=== PATIENT | female | born 1985 | race Caucasian/White ===

== ENCOUNTER 2016-07-19 11:28 | Emergency (ER) | payer BC ==
[~2016-07-19 11:28] MED LIST: ALBUTEROL17 GM INH; BIRTH CONTROL PILLS; FLEXERIL PO; FLEXERIL10 M1 PO; HUMALOG100 U/ML SUBQ; HYCODAN PO; INSULIN PUMP; LANTUS SOLOSTAR3 ML SQ; LANTUS SQ; LEVEMIR SQ; NAPROSYN500 MG PO; NAPROXEN PO; NOVALOG; NOVOLOG100 U/M2 SQ; NOVOLOG100 UNITS/; ROBITUSSIN A-C-S1 ML PO; VITAMIN D; VITAMIN D1000 UNIT PO; VOLTAREN75 MG PO; ZANAFLEX2 M2 PO; ZITHROMAX PO; ZOFRAN PO
[2016-07-19] MEDS ORDERED: ZOLOFT100 MG PO (11:43)
[2016-07-19 12:11] LABS: URINE SOURCE CLEAN CATCH
[2016-07-19 12:13] LABS: URINE APPEARANCE CLEAR; URINE BILIRUBIN NEG (NEG); URINE BLOOD NEG (NEG); URINE COLOR YELLOW; URINE GLUCOSE 100 MG/DL (NORM); URINE LEUKOCYTE ESTERASE NEG (NEG); URINE NITRATE NEG (NEG); URINE PROTEIN NEG (NEG); URINE SPECIFIC GRAVITY 1.025 (1.003-1.035); URINE UROBILINOGEN 0.2 MG/DL (NORM)
[2016-07-19 12:16] LABS: MICRO INDICATED? NO; URINE KETONE 3+ (NEG)
[2016-07-19 12:48] LABS: GLOM FILT RATE Estimated 76.1 mL/min (>60); POTASSIUM 3.8 mmol/L (3.5-5.1)
[2016-07-19 12:51] LABS: ACETONE, SERUM 20 MG/DL (0-0); BETA-HCG SCREEN-PREGNANCY NEG
== END 2016-07-19 15:31 | disposition home or self-care (01) ==
LOC: SED 11:28
PROVIDERS: Emergency Medicine
DX: K29.00 Acute gastritis without bleeding (principal); E13.10 Other specified diabetes mellitus with ketoacidosis without coma; B34.9 Viral infection, unspecified; F32.9 Major depressive disorder, single episode, unspecified; Z79.4 Long term (current) use of insulin; Z88.0 Allergy status to penicillin
CPT/HCPCS: 36415; 80048; 81003; 82010; 82947; 84703; 96361; 96374; 96375; 99284; J2405

== ENCOUNTER 2016-12-08 14:04 | Emergency (ER) | payer BC ==
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
[~2016-12-08 14:04] MED LIST changes: +ZOLOFT100 MG PO
[2016-12-08 15:28] LABS: BASOPHIL# 0.1 X10e3 (0-0.3); BASOPHIL% 0.7 % (0-2.5); EOSINOPHIL% 0.2 % (0.0-7.0); HEMATOCRIT 37.7 % (35.0-45.0); HEMOGLOBIN 12.5 gm/dL (12.0-16.0); MEAN CELL VOLUME 82.1 FL (83-96); MEAN CORPUSCULAR HEMOGLOBIN 27.2 PG (28-34); MEAN CORPUSCULAR HGB CONC 33.1 g/dL (30-36); MEAN PLATELET VOLUME 7.9 FL (6.5-11.5); MONOCYTE% 8.2 % (3.0-12.0); NEUTROPHIL# 8.4 X10e3 (1.5-7.1); NEUTROPHIL% 66.9 % (40-75); PLATELET COUNT 425 X10e3 (140-420); RED BLOOD COUNT 4.59 X10e (3.90-5.30); WHITE BLOOD COUNT 12.6 X10e3 (4.0-10.5)
[2016-12-08 15:30] LABS: DIFF IND NO
[2016-12-08 15:47] LABS: URINE SOURCE CLEAN CATCH
[2016-12-08 15:49] LABS: ALBUMIN SERUM 4.3 g/dL (3.5-5.0); ALKALINE PHOSPHATASE 136 U/L (32-92); ALT (SGPT) 23 U/L (10-40); AST (SGOT) 26 U/L (10-42); BILIRUBIN, DIRECT 0.1 mg/dL (0.0-0.2); BILIRUBIN,INDIRECT 0.8 mg/dL (0.0-0.9); BILIRUBIN,TOTAL 0.9 mg/dL (0.2-2.0); BLOOD UREA NITROGEN 14 mg/dL (9-23); BUN/CREATININE RATIO 15.55; CALCIUM SERUM 9.1 mg/dL (8.4-10.2); CARBON DIOXIDE 24 mmol/L (22-31); CHLORIDE 100 mmol/L (100-111); CREATININE SERUM 0.9 mg/dL (0.6-1.4); GLOM FILT RATE Estimated 85.9 mL/min (>60); GLUCOSE FASTING 341 mg/dL (70-110); POTASSIUM 4.1 mmol/L (3.5-5.1); PROTEIN TOTAL SERUM 7.9 g/dL (6.0-8.3); SODIUM 134 mmol/L (135-145)
[2016-12-08 15:50] LABS: URINE APPEARANCE CLEAR; URINE BILIRUBIN NEG (NEG); URINE BLOOD 3+ (NEG); URINE COLOR YELLOW; URINE GLUCOSE 100 MG/DL (NORM); URINE LEUKOCYTE ESTERASE NEG (NEG); URINE NITRATE NEG (NEG); URINE PH 5.5 (5-8); URINE PROTEIN NEG (NEG); URINE SPECIFIC GRAVITY 1.025 (1.003-1.035); URINE UROBILINOGEN 0.2 MG/DL (NORM)
[2016-12-08 15:51] LABS: MICRO INDICATED? YES; URINE KETONE 2+ (NEG)
[2016-12-08 15:54] LABS: ALCOHOL BLOOD <5 mg/dL ([, 0])
[2016-12-08 15:56] LABS: CULTURE INDICATED? YES; URINE BACTERIA 1+ (NEG); URINE RBC 25-50 /[HPF] (0-2)
[2016-12-08 15:57] LABS: URINE SQUAMOUS EPITHELIAL CELL FEW /[HPF]
[2016-12-08 16:06] LABS: AMPHETAMINE NEG (NEG); BARBITURATES NEG (NEG); BENZODIAZEPINES NEG (NEG); COCAINE NEG (NEG); MARIJUANA NEG (NEG); OPIATES NEG (NEG); TRICYCLIC ANTIDEPRESSANTS NEG (NEG); U METHADONE NEG (NEG)
== END 2016-12-08 17:08 | disposition home or self-care (01) ==
LOC: SED 14:04
PROVIDERS: Emergency Medicine
DX: S00.83XA Contusion of other part of head, initial encounter (principal); S60.222A Contusion of left hand, initial encounter; S60.221A Contusion of right hand, initial encounter; S80.02XA Contusion of left knee, initial encounter; S80.01XA Contusion of right knee, initial encounter; S90.32XA Contusion of left foot, initial encounter; R73.9 Hyperglycemia, unspecified; Z88.0 Allergy status to penicillin; W22.8XXA Striking against or struck by other objects, initial encounter; Y92.830 Public park as the place of occurrence of the external cause
CPT/HCPCS: 36415; 70450; 70486; 72125; 73630; 80048; 80076; 80307; 81003; 84703; 85025; 87086; 96360; 99284; G0480